=== PATIENT | female | born 1980 | race Caucasian/White ===

== ENCOUNTER 2024-01-28 04:34 | Emergency (ER) | payer BC ==
[~2024-01-28] VITALS: Ht 167.6 cm; Wt 63.6 kg
[2024-01-28 04:52] VITALS: BP 102/58; PULSE 62; RESP 16; TEMP 98.8; O2SAT 97
== END 2024-01-28 07:03 | disposition left against medical advice (07) ==
LOC: ER 04:35
DX: R10.31 Right lower quadrant pain (principal); R11.2 Nausea with vomiting, unspecified; Z53.21 Procedure and treatment not carried out due to patient leaving prior to being seen by health care provider; Z88.8 Allergy status to other drugs, medicaments and biological substances